=== PATIENT | male | born 1995 | race Caucasian/White ===

== ENCOUNTER 2019-07-04 10:55 | Emergency (ER) | payer OTHER ==
[~2019-07-04] VITALS: Ht 177.8 cm; Wt 68.2 kg
[2019-07-04 11:09] VITALS: TEMP 98.6
[2019-07-04] MEDS ORDERED: SMZ/TMPDS PO (11:13)
[2019-07-04] MEDS ORDERED: OMNICEF 300MG300 MG PO (12:14)
[2019-07-04] MEDS ORDERED: DOXYCYCLINE 10100 MG PO (12:14)
[2019-07-04 13:03] VITALS: BP 132/88; PULSE 77
[2019-07-06] MEDS ORDERED: BACTRIM DS 8001 TAB PO (16:44)
== END 2019-07-04 13:15 | disposition home or self-care (01) ==
LOC: COL.ER 10:55
DX: L02.415 Cutaneous abscess of right lower limb (principal); L03.115 Cellulitis of right lower limb
CPT/HCPCS: A4216; J0696; J3010

== ENCOUNTER → 2023-10-18 | Outpatient (CLI) | payer OTHER ==
[~2023-10-18] MED LIST: BACTRIM DS 8001 TAB PO; DOXYCYCLINE 10100 MG PO; OMNICEF 300MG300 MG PO; SMZ/TMPDS PO
== END ==
LOC: COL.LAB 10:57
DX: K52.9 Noninfective gastroenteritis and colitis, unspecified (principal)